=== PATIENT | female | born 1975 | race Hispanic/Latino ===

== ENCOUNTER 2017-08-20 15:48 | Outpatient (CLI) | payer MEDICAID, SELFPAY | END 2017-08-20 15:49 | disposition home or self-care (01) | LOC: BICRAD 15:48 | PROVIDERS: ATTEND Family Medicine | DX: M79.671 Pain in right foot (principal); S92.514A Nondisplaced fracture of proximal phalanx of right lesser toe(s), initial encounter for closed fracture ==

== ENCOUNTER 2017-08-23 17:38 | Emergency (ER) | payer MEDICAID, SELFPAY ==
--- NOTE | 2017-08-23 20:46 | RAD ---
RIGHT FOOT THREE VIEWS 08/23/17 CLINICAL HISTORY: Right foot injury with pain and swelling. FINDINGS: Subtle fracture lucency without significant displacement is seen involving the proximal phalanx of th e fifth digit. There is overlying soft tissue swelling. Lisfranc joint is maintained. IMPRESSION: Subtle obliquely oriented lucency of the fifth digit proximal phalanx indicating nondisplaced fractur e. Correlate for focal pain in this region. POS: PELON
== END 2017-08-23 19:21 | disposition home or self-care (01) ==
LOC: ERS 17:38
DX: S92.514A Nondisplaced fracture of proximal phalanx of right lesser toe(s), initial encounter for closed fracture (principal); W22.8XXA Striking against or struck by other objects, initial encounter